=== PATIENT | male | born 1990 | race Caucasian/White ===

== ENCOUNTER 2016-12-06 17:31 | Emergency (ER) | payer SELFPAY ==
[~2016-12-06] VITALS: Wt 72.7 kg
[2016-12-06] MEDS ORDERED: IBUPROFEN 800 MG TAB PO ONE (20:30)
[2016-12-06] MEDS ORDERED: CYCLOBENZAPRINE 10 MG TAB PO ONE (20:30)
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
[2016-12-06] MEDS ORDERED: IBUP-1542 PO (21:32)
[2016-12-06] MEDS ORDERED: CYCL-319 PO (21:32)
[2016-12-06 21:41] VITALS: BP 148/88; PULSE 77; RESP 18; TEMP 98.3
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
== END 2016-12-06 21:41 | disposition home or self-care (01) ==
LOC: FTE 17:31
DX: S39.92XA Unspecified injury of lower back, initial encounter (principal); S29.9XXA Unspecified injury of thorax, initial encounter; V49.50XA Passenger injured in collision with unspecified motor vehicles in traffic accident, initial encounter
CPT/HCPCS: 72040; 72072; 72100

== ENCOUNTER 2018-02-16 22:16 | Emergency (ER) | END 2018-02-17 02:34 | disposition home or self-care (01) ==